=== PATIENT | female | born 1995 | race American Indian/Alaskan Native ===

== ENCOUNTER 2020-11-15 12:34 | Emergency (ER) | payer SELFPAY ==
[2020-11-15] MEDS ORDERED: KETOROLAC 10 MG TAB PO ONE (13:39)
[2020-11-15] MEDS ORDERED: ACETAMINOPHEN 325 MG TAB PO ONE (13:39)
--- NOTE | 2020-11-15 13:43 | Emergency Department Report ---
ED ENT HPI - General Chief complaint: Skin/Abscess/Foreign Body Stated complaint: CYST IN MOUTH Time Seen by Provider: 11/15/20 13:34 Source: patient Mode of arrival: Ambulatory Limitations: No Limitations - History of Present Illness Initial comments: 25-year-old female presents to the ER today with complaints of right jaw swelling, and tooth pain. Patient states that she has had a bad tooth to her right upper jaw for a while, but it started to become painful couple days ago and then was swollen yesterday. She does not currently has a dentist. She reports pain on palpation of the tooth, with eating and drinking. She denies any difficulty swallowing, difficulty breathing, trismus, fever or chills. MD complaint: tooth pain -: Gradual - Related Data Previous Rx's Medication Instructions Recorded Last Taken Type Clindamycin [Clindamycin CAP] 300 mg PO Q6H #40 capsule 11/15/20 Unknown Rx Ketorolac [Toradol] 10 mg PO Q6H PRN #20 tablet 11/15/20 Unknown Rx Allergies Allergy/AdvReac Type Severity Reaction Status Date / Time No Known Allergies Allergy Verified 11/15/20 12:57 ED Dental HPI - General Chief complaint: Skin/Abscess/Foreign Body Stated complaint: CYST IN MOUTH Time Seen by Provider: 11/15/20 13:34 Source: patient Mode of arrival: Ambulatory Limitations: No Limitations - Related Data Previous Rx's Medication Instructions Recorded Last Taken Type Clindamycin [Clindamycin CAP] 300 mg PO Q6H #40 capsule 11/15/20 Unknown Rx Ketorolac [Toradol] 10 mg PO Q6H PRN #20 tablet 11/15/20 Unknown Rx Allergies Allergy/AdvReac Type Severity Reaction Status Date / Time No Known Allergies Allergy Verified 11/15/20 12:57 ED Review of Systems ROS: Stated complaint: CYST IN MOUTH Other details as noted in HPI Comment: All other systems reviewed and negative Constitutional: denies: chills, fever Eyes: denies: eye pain, eye discharge, vision change ENT: dental pain, other (right jaw swelling ). denies: ear pain, throat pain Respiratory: denies: cough, shortness of breath, SOB with exertion, SOB at rest, wheezing Cardiovascular: denies: chest pain, palpitations, dyspnea on exertion, edema, syncope, paroxysmal nocturnal dyspnea Gastrointestinal: denies: abdominal pain, nausea, vomiting, diarrhea, constipation, hematemesis, melena, hematochezia Genitourinary: denies: urgency, dysuria, frequency, hematuria, discharge, abnormal menses, dyspareunia Musculoskeletal: denies: back pain, joint swelling, arthralgia Skin: denies: rash, lesions, change in color, change in hair/nails, pruritus Neurological: denies: headache, weakness, numbness, paresthesias, confusion, abnormal gait, vertigo Psychiatric: denies: anxiety, depression, auditory hallucinations, visual hallucinations, homicidal thoughts, suicidal thoughts Hematological/Lymphatic: denies: easy bleeding, easy bruising ED Past Medical Hx - Past Medical History Previous Medical History?: No - Surgical History Past Surgical History?: No - Medications Home Medications: Home Medications Medication Instructions Recorded Confirmed Last Taken Type Clindamycin [Clindamycin CAP] 300 mg PO Q6H #40 capsule 11/15/20 Unknown Rx Ketorolac [Toradol] 10 mg PO Q6H PRN #20 tablet 11/15/20 Unknown Rx ED Physical Exam - General Limitations: No Limitations General appearance: alert, in no apparent distress - Head Head exam: Present: atraumatic, normocephalic, normal inspection - Eye Eye exam: Present: normal appearance, PERRL, EOMI Pupils: Present: normal accommodation - ENT ENT exam: Present: mucous membranes moist - Expanded ENT Exam Expanded Mouth exam: Present: normal external inspection Teeth exam: Present: other (mild swelling right cheek but no facial cellulitis ) 1 - Fractured (Severe dental decay to the gum), Dental Tenderness (Severe), Other (moderate gum swelling) - Neck Neck exam: Present: normal inspection, full ROM. Absent: meningismus - Respiratory Respiratory exam: Present: normal lung sounds bilaterally ED Course Vital Signs 11/15/20 11/15/20 12:59 13:02 Temperature 98.4 F 98.1 F Pulse Rate 57 L 90 Respiratory 18 18 Rate Blood Pressure 100/64 141/86 O2 Sat by Pulse 99 99 Oximetry Critical care attestation.: If time is entered above; I have spent that time in minutes in the direct care of this critically ill patient, excluding procedure time. ED Disposition Clinical Impression: Dental abscess Disposition: 01 HOME / SELF CARE / HOMELESS Is pt being admited?: No Does the pt Need Aspirin: No Condition: Stable Instructions: Dental Abscess, [id number] Prescriptions: Clindamycin [Clindamycin CAP] 300 mg PO Q6H #40 capsule Ketorolac [Toradol] 10 mg PO Q6H PRN #20 tablet PRN Reason: Pain Referrals: [facility] [Other] - 3-5 Days Time of Disposition: 13:45
[2020-11-15 14:03] VITALS: BP 111/73
== END 2020-11-15 14:10 | disposition home or self-care (01) ==
LOC: ED 12:34
DX: K04.7 Periapical abscess without sinus (principal); Z79.899 Other long term (current) drug therapy
CPT/HCPCS: 99282